=== PATIENT | female | born 1940 | race African-American/Black ===

== ENCOUNTER 2018-07-10 17:14 | Emergency (ER) | payer BC, OTHER ==
[~2018-07-10] VITALS: Ht 165.1 cm; Wt 81.0 kg
[2018-07-10] MEDS ORDERED: LABETALOL 5MG/ML SYR 20 MG/4 ML SYRINGE IV ONE (18:00)
[2018-07-10 18:13] LABS: BASOPHILS % 0.7 % (0.0-2.0); CHLORIDE 108 mEq/L (98-107); HEMATOCRIT. 38.2 % (36.0-48.0); HEMOGLOBIN. 12.9 g/dL (12.0-16.0); LYMPHOCYTES % 42.4 % (20.0-50.0); MEAN CORPUSCULAR HEMOGLOBIN 30.2 pg (28.0-32.0); MEAN CORPUSCULAR VOLUME 89.7 fL (81.0-99.0); MEAN PLATELET VOLUME 8.4 fl (7.4-10.4); MONOCYTES % 8.5 % (2.0-8.0); NEUTROPHILS % 46.4 % (40.0-76.0); PLATELET 247 x1000/uL (130-400); RED BLOOD CELL COUNT 4.26 mill/uL (4.2-5.4); RED CELL DISTRIBUTION WIDTH 14.4 % (11.6-14.6)
[2018-07-10] MEDS ORDERED: CLONIDINE 0.1MG TABLET PO ONE (18:30)
[2018-07-10 21:00] VITALS: BP 180/89
== END 2018-07-10 21:30 | disposition left against medical advice (07) ==
LOC: ER 17:14
DX: I10 Essential (primary) hypertension (principal)
CPT/HCPCS: 36415; 71045; 80053; 83880; 84484; 85025; 93005; 99284; J3490